=== PATIENT | male | born 1955 | race Caucasian/White ===

== ENCOUNTER 2017-03-12 18:42 | Emergency (ER) | payer OTHER ==
[~2017-03-12] VITALS: Ht 170.2 cm; Wt 108.9 kg
[~2017-03-12 18:42] MED LIST: ALDACTONE50 MG PO; BUSPIRONE15 M1 PO; CLONIDINE HYDR0.3 M1 PO; COZAAR100 MG PO; HYDROCHLOROTHIA25 MG PO; LACTULOSE10 GM/152 PO; LASIX20 MG PO; RESTORIL30 MG PO; VENLAFAXINE PO; VENLAFAXINE150 M1 PO
[2017-03-12 21:18] VITALS: BP 102/70
== END 2017-03-12 21:19 | disposition home or self-care (01) ==
LOC: ED 18:42
DX: G89.29 Other chronic pain (principal); M54.5 Low back pain
CPT/HCPCS: J1885

== ENCOUNTER 2017-07-24 16:38 | Emergency (ER) | payer OTHER ==
[~2017-07-24] VITALS: Ht 170.2 cm; Wt 81.6 kg
[~2017-07-24 16:38] MED LIST changes: +BACLOFEN20 MG PO; +BUSPIRONE HCL10 MG PO; +CYMBALTA30 M1 PO; +DILAUDID2 MG PO; +LORAZEPAM1 MG PO; +MELOXICAM15 M1 PO; +TRAZODONE150 M1 PO
[2017-07-24 16:51] VITALS: BP 120/57; Ht 170.2 cm; Wt 81.6 kg
== END 2017-07-24 16:51 | disposition home or self-care (01) ==
LOC: ED 16:38
DX: G89.29 Other chronic pain (principal); M54.9 Dorsalgia, unspecified; I10 Essential (primary) hypertension; M79.7 Fibromyalgia; F31.9 Bipolar disorder, unspecified
CPT/HCPCS: J1885

== ENCOUNTER 2017-08-04 19:18 | Emergency (ER) | payer OTHER ==
[~2017-08-04] VITALS: Ht 170.2 cm; Wt 77.1 kg
[2017-08-04 20:23] VITALS: Ht 170.2 cm; Wt 77.1 kg
[2017-08-04 22:04] LABS: BASOPHIL % 0.7 % (0-2); PLATELET COUNT 92 x10^3mcL (130-400); RED CELL DISTRIBUTION WIDTH 13.9 % (11.5-14.5)
[2017-08-04 22:54] VITALS: BP 118/74
[2017-08-04 23:04] LABS: CALCIUM 8.4 mg/dL (8.5-10.1); CARBON DIOXIDE 18.9 mmol/L (21-32); CHLORIDE SERUM 105 mmol/L (98-107); CREATININE SERUM 1.1 mg/dL (0.7-1.3); GFR1 > 60 mL/min; GLUCOSE SERUM 97 mg/dL (74-106); POTASSIUM SERUM 4.1 mmol/L (3.5-5.1); SODIUM SERUM 137 mmol/L (136-145)
[2017-08-04 23:09] LABS: ALKALINE PHOSPHATASE 65 U/L (46-116); ALT/SGPT 48 U/L (16-63); AST/SGOT 45 U/L (15-37); BILIRUBIN TOTAL 0.8 mg/dL (0.20-1.00)
[2017-08-04 23:12] LABS: ALBUMIN 3.2 g/dL (3.4-5.0)
== END 2017-08-04 22:54 | disposition left against medical advice (07) ==
LOC: ED 19:18
PROVIDERS: Specialist
DX: G89.29 Other chronic pain (principal); I10 Essential (primary) hypertension; M79.7 Fibromyalgia; F31.9 Bipolar disorder, unspecified
CPT/HCPCS: 36415; G0480; J3490

== ENCOUNTER 2017-09-14 17:25 | Emergency (ER) | payer OTHER ==
[~2017-09-14] VITALS: Ht 170.2 cm; Wt 81.6 kg
[2017-09-14 17:29] VITALS: Ht 170.2 cm; Wt 81.6 kg
[2017-09-14 18:16] VITALS: BP 134/92
== END 2017-09-14 18:16 | disposition home or self-care (01) ==
LOC: ED 17:25
DX: G89.29 Other chronic pain (principal); M54.9 Dorsalgia, unspecified
CPT/HCPCS: J1885

== ENCOUNTER 2017-09-16 09:21 | Emergency (ER) | payer OTHER ==
[~2017-09-16] VITALS: Ht 170.2 cm; Wt 82.5 kg
[2017-09-16 09:25] VITALS: Ht 170.2 cm; Wt 82.5 kg
[2017-09-16 11:30] VITALS: BP 158/109
== END 2017-09-16 11:30 | disposition home or self-care (01) ==
LOC: ED 09:21
DX: G89.29 Other chronic pain (principal); M54.5 Low back pain; I10 Essential (primary) hypertension; K75.89 Other specified inflammatory liver diseases; M85.80 Other specified disorders of bone density and structure, unspecified site; M79.7 Fibromyalgia; F31.9 Bipolar disorder, unspecified
CPT/HCPCS: J3010; Q0162

== ENCOUNTER 2017-10-03 20:08 | Emergency (ER) | payer OTHER ==
[~2017-10-03] VITALS: Ht 170.2 cm; Wt 81.6 kg
[2017-10-03 21:00] VITALS: Ht 170.2 cm; Wt 81.6 kg
[2017-10-03 22:28] VITALS: BP 132/71
== END 2017-10-03 22:28 | disposition home or self-care (01) ==
LOC: ED 20:08
DX: M54.5 Low back pain (principal); I10 Essential (primary) hypertension
CPT/HCPCS: J1885

== ENCOUNTER 2017-10-05 06:05 | Emergency (ER) | payer OTHER ==
[~2017-10-05] VITALS: Ht 170.2 cm; Wt 82.5 kg
[2017-10-05 06:24] VITALS: Ht 170.2 cm; Wt 82.5 kg
[2017-10-05 08:26] VITALS: BP 138/92
== END 2017-10-05 08:47 | disposition home or self-care (01) ==
LOC: ED 06:05
PROC: 0T9B70Z Drainage of Bladder with Drainage Device, Via Natural or Artificial Opening (ICD-10-PCS; principal; 2017-10-05)
DX: R33.9 Retention of urine, unspecified (principal); I10 Essential (primary) hypertension; F31.9 Bipolar disorder, unspecified; B19.20 Unspecified viral hepatitis C without hepatic coma; M79.7 Fibromyalgia; K42.9 Umbilical hernia without obstruction or gangrene

== ENCOUNTER 2017-10-08 20:50 | Emergency (ER) | payer OTHER ==
[~2017-10-08] VITALS: Ht 170.2 cm; Wt 85.0 kg
[2017-10-08 21:11] VITALS: Ht 170.2 cm; Wt 85.0 kg
[2017-10-08 22:14] VITALS: BP 134/86
== END 2017-10-08 22:14 | disposition home or self-care (01) ==
LOC: ED 20:50
DX: Z46.6 Encounter for fitting and adjustment of urinary device (principal); I10 Essential (primary) hypertension

== ENCOUNTER 2017-10-19 00:49 | Emergency (ER) | payer OTHER ==
[~2017-10-19] VITALS: Ht 170.2 cm; Wt 83.0 kg
[2017-10-19 01:02] VITALS: Ht 170.2 cm; Wt 83.0 kg
[2017-10-19 02:56] LABS: UA SPECIFIC GRAVITY <=1.005 (1.005-1.035); microscopic required? YES; urine erythrocyte 2+ (NEGATIVE)
[2017-10-19 06:45] VITALS: BP 159/99
== END 2017-10-19 06:45 | disposition home or self-care (01) ==
LOC: ED 00:49
DX: R33.9 Retention of urine, unspecified (principal); R10.30 Lower abdominal pain, unspecified; G89.29 Other chronic pain; M54.9 Dorsalgia, unspecified; I10 Essential (primary) hypertension

== ENCOUNTER 2017-10-23 03:45 | Emergency (ER) | payer OTHER ==
[~2017-10-23] VITALS: Ht 170.2 cm; Wt 83.0 kg
[2017-10-23 03:48] VITALS: Ht 170.2 cm; Wt 83.0 kg
[2017-10-23 07:12] VITALS: BP 147/89
== END 2017-10-23 07:12 | disposition home or self-care (01) ==
LOC: ED 03:45
DX: R31.9 Hematuria, unspecified (principal); I10 Essential (primary) hypertension; T83.028A Displacement of other urinary catheter, initial encounter; Z87.448 Personal history of other diseases of urinary system; Y92.89 Other specified places as the place of occurrence of the external cause
CPT/HCPCS: J2270; J7030

== ENCOUNTER 2017-10-25 01:26 | Emergency (ER) | payer OTHER ==
[~2017-10-25] VITALS: Ht 170.2 cm; Wt 83.0 kg
[2017-10-25 01:32] VITALS: Ht 170.2 cm; Wt 83.0 kg
[2017-10-25 06:58] VITALS: BP 153/121
== END 2017-10-25 07:54 | disposition home or self-care (01) ==
LOC: ED 01:26
DX: M54.5 Low back pain (principal); R20.2 Paresthesia of skin; I10 Essential (primary) hypertension
CPT/HCPCS: J1885; J3010; Q0162

== ENCOUNTER 2017-10-26 06:51 | Inpatient (IN) | payer OTHER ==
[~2017-10-26] VITALS: Ht 170.2 cm; Wt 84.0 kg
[2017-10-26 06:54] VITALS: Ht 170.2 cm; Wt 84.0 kg
[2017-10-26 08:15] LABS: BASOPHIL % 0.5 % (0-2); RED CELL DISTRIBUTION WIDTH 14.4 % (11.5-14.5)
[2017-10-26 08:17] LABS: PLATELET COUNT 105 x10^3mcL (130-400)
[2017-10-26 08:33] LABS: CALCIUM 9.1 mg/dL (8.5-10.1); CARBON DIOXIDE 22.8 mmol/L (21-32); CHLORIDE SERUM 97 mmol/L (98-107); CREATININE SERUM 1.1 mg/dL (0.7-1.3); GFR1 > 60 mL/min; GLUCOSE SERUM 98 mg/dL (74-106); POTASSIUM SERUM 3.5 mmol/L (3.5-5.1); SODIUM SERUM 131 mmol/L (136-145)
[2017-10-26 08:35] LABS: UA SPECIFIC GRAVITY 1.015 (1.005-1.035); microscopic required? YES; urine erythrocyte 3+ (NEGATIVE)
[2017-10-26 08:37] LABS: ALBUMIN 3.6 g/dL (3.4-5.0); ALKALINE PHOSPHATASE 54 U/L (46-116); ALT/SGPT 35 U/L (16-63); AMYLASE 73 U/L (25-115); AST/SGOT 52 U/L (15-37); BILIRUBIN TOTAL 1.63 mg/dL (0.20-1.00); CHOLESTEROL 145 mg/dL (<200); HDL CHOLESTEROL 82 mg/dL (40-60); LIPASE 191 IU/L (73-393); MAGNESIUM 1.3 mg/dL (1.8-2.4); T4(THYROXINE) 5.8 ug/dL (4.7-13.3); TOTAL PROTEIN, SERUM 7.4 g/dL (6.4-8.2)
[2017-10-26 08:50] LABS: AMPHETAMINE QUAL UR NONE DETECTED (See below)
[2017-10-26 11:00] VITALS: BP 156/103
[2017-10-26 11:08] LABS: CHOLESTEROL/HDL RATIO 1.8
[2017-10-26 11:14] LABS: T3 TOTAL 1.12 ng/mL
[2017-10-26 11:16] LABS: FREE T4 1.11 ng/dL (0.76-1.46); T4(THYROXINE) 5.9 ug/dL (4.7-13.3)
[2017-10-26 17:17] VITALS: BP 158/102
[2017-10-26 20:58] VITALS: BP 146/97
[2017-10-27 05:41] VITALS: BP 144/95
[2017-10-27 07:18] LABS: BASOPHIL % 1.9 % (0-2); RED CELL DISTRIBUTION WIDTH 14.4 % (11.5-14.5)
[2017-10-27 07:25] LABS: PLATELET COUNT 87 x10^3mcL (130-400)
[2017-10-27 07:37] LABS: ALKALINE PHOSPHATASE 47 U/L (46-116); ALT/SGPT 20 U/L (16-63); AMYLASE 57 U/L (25-115); AST/SGOT 41 U/L (15-37); BILIRUBIN TOTAL 1.22 mg/dL (0.20-1.00); CALCIUM 8.5 mg/dL (8.5-10.1); CARBON DIOXIDE 23.5 mmol/L (21-32); CHLORIDE SERUM 101 mmol/L (98-107); GFR1 > 60 mL/min; GLUCOSE SERUM 99 mg/dL (74-106); MAGNESIUM 1.3 mg/dL (1.8-2.4); PHOSPHOROUS 3.3 mg/dL (2.5-4.9); POTASSIUM SERUM 3.5 mmol/L (3.5-5.1); SODIUM SERUM 134 mmol/L (136-145); TOTAL PROTEIN, SERUM 6.4 g/dL (6.4-8.2)
[2017-10-27 09:58] VITALS: BP 146/101
[2017-10-27 13:38] VITALS: BP 148/107
[2017-10-27 17:00] VITALS: BP 157/105
[2017-10-27 21:13] VITALS: BP 163/98
[2017-10-27 22:06] VITALS: BP 143/99
[2017-10-28 05:54] VITALS: BP 135/103
[2017-10-28 07:03] LABS: BASOPHIL % 0.8 % (0-2)
[2017-10-28 07:04] LABS: PLATELET COUNT 110 x10^3mcL (130-400); RED CELL DISTRIBUTION WIDTH 14.8 % (11.5-14.5)
[2017-10-28 07:20] LABS: ALKALINE PHOSPHATASE 48 U/L (46-116); ALT/SGPT 30 U/L (16-63); AST/SGOT 36 U/L (15-37); BILIRUBIN TOTAL 1.06 mg/dL (0.20-1.00); CALCIUM 8.8 mg/dL (8.5-10.1); CARBON DIOXIDE 23.7 mmol/L (21-32); CHLORIDE SERUM 101 mmol/L (98-107); CREATININE SERUM 1.1 mg/dL (0.7-1.3); GFR1 > 60 mL/min; GLUCOSE SERUM 86 mg/dL (74-106); MAGNESIUM 1.5 mg/dL (1.8-2.4); POTASSIUM SERUM 3.8 mmol/L (3.5-5.1); SODIUM SERUM 135 mmol/L (136-145); TOTAL PROTEIN, SERUM 6.7 g/dL (6.4-8.2)
[2017-10-28 07:21] LABS: ALBUMIN 3.1 g/dL (3.4-5.0)
[2017-10-28 08:08] VITALS: BP 142/97
[2017-10-28] MEDS ORDERED: FLOMAX0.4 MG PO (10:54)
[2017-10-28] MEDS ORDERED: NORCO1 TA1 PO (10:55)
[2017-10-28] MEDS ORDERED: LAC PO (10:55)
[2017-10-28] MEDS ORDERED: LEVAQUIN500 M1 PO (10:56)
[2017-10-28 11:52] VITALS: BP 142/97
[2017-10-28 12:26] VITALS: BP 136/75
[2017-10-28 12:28] VITALS: BP 146/95
== END 2017-10-28 14:49 | disposition home or self-care (01) | DRG 347 ==
LOC: ED 06:51 → DU 09:19
PROVIDERS: Emergency Medicine; Family Medicine; Internal Medicine
DX: S32.018A Other fracture of first lumbar vertebra, initial encounter for closed fracture (principal); N17.0 Acute kidney failure with tubular necrosis; G93.41 Metabolic encephalopathy; D69.6 Thrombocytopenia, unspecified; E87.1 Hypo-osmolality and hyponatremia; E83.42 Hypomagnesemia; N39.0 Urinary tract infection, site not specified; F25.0 Schizoaffective disorder, bipolar type; B18.2 Chronic viral hepatitis C; M79.7 Fibromyalgia; R80.9 Proteinuria, unspecified; I10 Essential (primary) hypertension; Z68.28 Body mass index [BMI] 28.0-28.9, adult; W17.89XA Other fall from one level to another, initial encounter; Y93.89 Activity, other specified; Y92.89 Other specified places as the place of occurrence of the external cause
CPT/HCPCS: 36600; 83880; 84439; 97535-GP; G0480; J1956; J2270; J7030; J7040; Q0092

== ENCOUNTER 2017-10-29 18:47 | Emergency (ER) | payer OTHER ==
[~2017-10-29] VITALS: Ht 170.2 cm; Wt 83.0 kg
[~2017-10-29 18:47] MED LIST changes: +FLOMAX0.4 MG PO; +LAC PO; +LEVAQUIN500 M1 PO; +NORCO1 TA1 PO
[2017-10-29 18:56] VITALS: Ht 170.2 cm; Wt 83.0 kg
[2017-10-29 20:27] VITALS: BP 135/87
== END 2017-10-29 20:28 | disposition home or self-care (01) ==
LOC: ED 18:47
DX: G89.29 Other chronic pain (principal); M54.5 Low back pain; I10 Essential (primary) hypertension; Z86.69 Personal history of other diseases of the nervous system and sense organs
CPT/HCPCS: J1885

== ENCOUNTER 2017-11-08 16:26 | Emergency (ER) | payer OTHER ==
[~2017-11-08] VITALS: Ht 170.2 cm; Wt 83.0 kg
[2017-11-08 16:32] VITALS: Ht 170.2 cm; Wt 83.0 kg
[2017-11-08 19:17] LABS: microscopic required? NO
[2017-11-08 19:30] LABS: BASOPHIL % 0.7 % (0-2)
[2017-11-08 19:32] LABS: UA SPECIFIC GRAVITY <=1.005 (1.005-1.035); urine erythrocyte NEGATIVE (NEGATIVE)
[2017-11-08 19:34] LABS: PLATELET COUNT 121 x10^3mcL (130-400); RED CELL DISTRIBUTION WIDTH 15.3 % (11.5-14.5)
[2017-11-08 19:38] LABS: CALCIUM 7.5 mg/dL (8.5-10.1); CARBON DIOXIDE 24.2 mmol/L (21-32); CHLORIDE SERUM 98 mmol/L (98-107); CREATININE SERUM 1.1 mg/dL (0.7-1.3); GFR1 > 60 mL/min; GLUCOSE SERUM 121 mg/dL (74-106); POTASSIUM SERUM 3.6 mmol/L (3.5-5.1); SODIUM SERUM 129 mmol/L (136-145)
[2017-11-08 19:42] LABS: ALKALINE PHOSPHATASE 67 U/L (46-116); ALT/SGPT 37 U/L (16-63); AST/SGOT 39 U/L (15-37); BILIRUBIN TOTAL 0.6 mg/dL (0.20-1.00)
[2017-11-08 19:43] LABS: ALBUMIN 3.1 g/dL (3.4-5.0)
[2017-11-08 19:45] LABS: AMPHETAMINE QUAL UR NONE DETECTED (See below)
[2017-11-08 20:20] VITALS: BP 134/93
== END 2017-11-08 20:20 | disposition home or self-care (01) ==
LOC: ED 16:26
PROVIDERS: Emergency Medicine
DX: M54.42 Lumbago with sciatica, left side (principal); F10.10 Alcohol abuse, uncomplicated; I10 Essential (primary) hypertension; G89.29 Other chronic pain; F31.9 Bipolar disorder, unspecified
CPT/HCPCS: 36415; G0480; J1885; J7512

== ENCOUNTER 2017-11-10 22:09 | Emergency (ER) | payer OTHER ==
[~2017-11-10] VITALS: Ht 170.2 cm; Wt 82.6 kg
[2017-11-10 22:14] VITALS: Ht 170.2 cm; Wt 82.6 kg
[2017-11-10 23:40] VITALS: BP 126/85
== END 2017-11-10 23:40 | disposition home or self-care (01) ==
LOC: ED 22:09
DX: M54.32 Sciatica, left side (principal); I10 Essential (primary) hypertension; G89.29 Other chronic pain; F31.9 Bipolar disorder, unspecified
CPT/HCPCS: J1885

== ENCOUNTER 2017-11-28 11:06 | Inpatient (IN) | payer OTHER ==
[~2017-11-28] VITALS: Ht 167.6 cm; Wt 72.2 kg
[2017-11-28 11:12] VITALS: Ht 167.6 cm; Wt 72.2 kg
[2017-11-28 12:02] LABS: BASOPHIL % 0.5 % (0-2); PLATELET COUNT 206 x10^3mcL (130-400); RED CELL DISTRIBUTION WIDTH 14.5 % (11.5-14.5)
[2017-11-28 12:09] LABS: CARBON DIOXIDE 21 mmol/L (21-32); CHLORIDE SERUM 92 mmol/L (98-107); POTASSIUM SERUM 3.9 mmol/L (3.5-5.1); SODIUM SERUM 126 mmol/L (136-145)
[2017-11-28 12:10] LABS: CALCIUM 9.5 mg/dL (8.5-10.1); CREATININE SERUM 1.1 mg/dL (0.7-1.3); GFR1 > 60 mL/min; GLUCOSE SERUM 101 mg/dL (74-106)
[2017-11-28 12:26] LABS: ALKALINE PHOSPHATASE 64 U/L (46-116); ALT/SGPT 46 U/L (16-63); AST/SGOT 64 U/L (15-37); BILIRUBIN TOTAL 1.8 mg/dL (0.20-1.00)
[2017-11-28 12:37] LABS: TOTAL PROTEIN, SERUM 8.3 g/dL (6.4-8.2)
[2017-11-28] MEDS ORDERED: HYDRALAZINE HCL25 MG (13:19)
[2017-11-28] MEDS ORDERED: FINASTERIDE5 M1 PO (13:20)
[2017-11-28 13:57] LABS: MAGNESIUM 1.8 mg/dL (1.8-2.4); PHOSPHOROUS 4.2 mg/dL (2.5-4.9)
[2017-11-28 14:06] LABS: FREE T4 1.07 ng/dL (0.76-1.46); FREE THYROXINE INDEX 2.6 ug/dL (1.4-4.5); T4(THYROXINE) 7.9 ug/dL (4.7-13.3)
[2017-11-28 14:08] LABS: T3 TOTAL 1.2 ng/mL
[2017-11-28 14:23] VITALS: BP 148/108
[2017-11-28 17:12] VITALS: BP 149/87
[2017-11-28 18:12] VITALS: BP 126/87
[2017-11-28 20:56] VITALS: BP 111/79
[2017-11-28 22:57] LABS: microscopic required? NO
[2017-11-28 23:13] LABS: urine erythrocyte NEGATIVE (NEGATIVE)
[2017-11-28 23:22] LABS: AMPHETAMINE QUAL UR NONE DETECTED (See below)
[2017-11-29] VITALS (8 sets, daily range): BP systolic 82–153; BP diastolic 43–99
[2017-11-29 07:24] LABS: CALCIUM 8.7 mg/dL (8.5-10.1); CARBON DIOXIDE 18.7 mmol/L (21-32); CHLORIDE SERUM 94 mmol/L (98-107); GFR1 > 60 mL/min; GLUCOSE SERUM 100 mg/dL (74-106); MAGNESIUM 1.7 mg/dL (1.8-2.4); PHOSPHOROUS 3.8 mg/dL (2.5-4.9); POTASSIUM SERUM 3.3 mmol/L (3.5-5.1); SODIUM SERUM 126 mmol/L (136-145)
[2017-11-29 08:38] LABS: BASOPHIL % 0.7 % (0-2); PLATELET COUNT 150 x10^3mcL (130-400)
[2017-11-30 05:32] VITALS: BP 136/91
[2017-11-30 06:12] LABS: BASOPHIL % 0.7 % (0-2)
[2017-11-30 06:25] LABS: PLATELET COUNT 114 x10^3mcL (130-400); RED CELL DISTRIBUTION WIDTH 15.8 % (11.5-14.5)
[2017-11-30 06:32] LABS: CALCIUM 8.4 mg/dL (8.5-10.1); CARBON DIOXIDE 19.5 mmol/L (21-32); CHLORIDE SERUM 103 mmol/L (98-107); CREATININE SERUM 1.2 mg/dL (0.7-1.3); GFR1 > 60 mL/min; GLUCOSE SERUM 84 mg/dL (74-106); MAGNESIUM 1.9 mg/dL (1.8-2.4); PHOSPHOROUS 2.9 mg/dL (2.5-4.9); POTASSIUM SERUM 3.9 mmol/L (3.5-5.1); SODIUM SERUM 134 mmol/L (136-145)
[2017-11-30 08:58] VITALS: BP 103/64
[2017-11-30] MEDS ORDERED: LAC15L PO (12:12)
[2017-11-30] MEDS ORDERED: THI100 PO (12:13)
[2017-11-30] MEDS ORDERED: FOL1 PO (12:13)
[2017-11-30 12:20] VITALS: BP 103/64
[2017-11-30 13:09] VITALS: BP 131/97
== END 2017-11-30 14:15 | disposition home or self-care (01) | DRG 279 ==
LOC: ED 11:06 → MU 13:11 → EDBEDREQSVC 13:11 → DU 13:11 → MU 14:38 → DU 15:03
PROVIDERS: Emergency Medicine; Internal Medicine
DX: K72.90 Hepatic failure, unspecified without coma (principal); G93.41 Metabolic encephalopathy; F10.239 Alcohol dependence with withdrawal, unspecified; B19.20 Unspecified viral hepatitis C without hepatic coma; E87.1 Hypo-osmolality and hyponatremia; E80.6 Other disorders of bilirubin metabolism; I10 Essential (primary) hypertension; F31.9 Bipolar disorder, unspecified; M79.7 Fibromyalgia; Y90.9 Presence of alcohol in blood, level not specified
CPT/HCPCS: 83880; 84439; G0480; J0780; J1885; J2060; J3010; J3475; J7030; Q0092

== ENCOUNTER 2017-12-01 22:59 | Emergency (ER) | payer OTHER ==
[~2017-12-01] VITALS: Ht 170.2 cm; Wt 83.0 kg
[~2017-12-01 22:59] MED LIST changes: +FINASTERIDE5 M1 PO; +FOL1 PO; +HYDRALAZINE HCL25 MG; +LAC15L PO; +THI100 PO
[2017-12-01 23:04] VITALS: Ht 170.2 cm; Wt 83.0 kg
[2017-12-01 23:45] LABS: BASOPHIL % 0.7 % (0-2)
[2017-12-01 23:51] LABS: PLATELET COUNT 122 x10^3mcL (130-400)
[2017-12-02 00:05] LABS: ALKALINE PHOSPHATASE 52 U/L (46-116); ALT/SGPT 32 U/L (16-63); AST/SGOT 33 U/L (15-37); BILIRUBIN TOTAL 0.6 mg/dL (0.20-1.00); CALCIUM 7.9 mg/dL (8.5-10.1); CARBON DIOXIDE 19.8 mmol/L (21-32); CHLORIDE SERUM 101 mmol/L (98-107); CREATININE SERUM 1.1 mg/dL (0.7-1.3); GFR1 > 60 mL/min; GLUCOSE SERUM 122 mg/dL (74-106); MAGNESIUM 1.8 mg/dL (1.8-2.4); POTASSIUM SERUM 3.4 mmol/L (3.5-5.1); SODIUM SERUM 132 mmol/L (136-145); TOTAL PROTEIN, SERUM 6.9 g/dL (6.4-8.2)
[2017-12-02 00:11] LABS: ALBUMIN 3.3 g/dL (3.4-5.0)
[2017-12-02 04:12] VITALS: BP 133/75
== END 2017-12-02 04:12 | disposition home or self-care (01) ==
LOC: ED 22:59
PROVIDERS: Emergency Medicine
DX: G89.29 Other chronic pain (principal); M54.9 Dorsalgia, unspecified; I10 Essential (primary) hypertension; F31.9 Bipolar disorder, unspecified
CPT/HCPCS: G0480; J1885; J3411; J3475; J3490; J7030; J7040

== ENCOUNTER 2017-12-03 17:21 | Inpatient (IN) | payer OTHER ==
[~2017-12-03] VITALS: Ht 167.6 cm; Wt 83.1 kg
[2017-12-03 18:55] LABS: BASOPHIL % 0.8 % (0-2); PLATELET COUNT 171 x10^3mcL (130-400)
[2017-12-03 18:57] LABS: RED CELL DISTRIBUTION WIDTH 15.4 % (11.5-14.5)
[2017-12-03 19:17] LABS: CHLORIDE SERUM 108 mmol/L (98-107); CREATININE SERUM 1.3 mg/dL (0.7-1.3); GFR1 60 mL/min; GLUCOSE SERUM 106 mg/dL (74-106); POTASSIUM SERUM 3.5 mmol/L (3.5-5.1); SODIUM SERUM 144 mmol/L (136-145)
[2017-12-03 19:30] LABS: ALBUMIN 3.6 g/dL (3.4-5.0); ALKALINE PHOSPHATASE 54 U/L (46-116); ALT/SGPT 33 U/L (16-63); AST/SGOT 34 U/L (15-37); BILIRUBIN TOTAL 0.6 mg/dL (0.20-1.00); FREE T4 0.91 ng/dL (0.76-1.46); TOTAL PROTEIN, SERUM 7.6 g/dL (6.4-8.2)
[2017-12-03 22:11] VITALS: BP 144/85
[2017-12-03 22:53] LABS: MAGNESIUM 1.8 mg/dL (1.8-2.4); PHOSPHOROUS 4.2 mg/dL (2.5-4.9)
[2017-12-04] VITALS (11 sets, daily range): BP systolic 140–175; BP diastolic 92–111; Ht 167.6 cm; Wt 83.1 kg
[2017-12-04 02:15] LABS: microscopic required? NO
[2017-12-04 02:29] LABS: UA SPECIFIC GRAVITY 1.025 (1.005-1.035); urine erythrocyte NEGATIVE (NEGATIVE)
[2017-12-04 02:35] LABS: AMPHETAMINE QUAL UR NONE DETECTED (See below)
[2017-12-04 06:34] LABS: BASOPHIL % 0.7 % (0-2); PLATELET COUNT 142 x10^3mcL (130-400)
[2017-12-04 06:39] LABS: RED CELL DISTRIBUTION WIDTH 14.9 % (11.5-14.5)
[2017-12-04 07:12] LABS: CARBON DIOXIDE 22.3 mmol/L (21-32); CHLORIDE SERUM 108 mmol/L (98-107); CREATININE SERUM 1.1 mg/dL (0.7-1.3); GFR1 > 60 mL/min; GLUCOSE SERUM 126 mg/dL (74-106); POTASSIUM SERUM 3.6 mmol/L (3.5-5.1); SODIUM SERUM 142 mmol/L (136-145)
[2017-12-05 05:16] VITALS: BP 144/91
[2017-12-05 06:23] LABS: BASOPHIL % 0.5 % (0-2); PLATELET COUNT 107 x10^3mcL (130-400); RED CELL DISTRIBUTION WIDTH 14.5 % (11.5-14.5)
[2017-12-05 06:27] LABS: CALCIUM 8.3 mg/dL (8.5-10.1); CARBON DIOXIDE 24.9 mmol/L (21-32); CHLORIDE SERUM 105 mmol/L (98-107); CREATININE SERUM 0.9 mg/dL (0.7-1.3); GFR1 > 60 mL/min; GLUCOSE SERUM 87 mg/dL (74-106); POTASSIUM SERUM 3.5 mmol/L (3.5-5.1); SODIUM SERUM 138 mmol/L (136-145)
[2017-12-05 08:54] VITALS: BP 120/90
[2017-12-05 12:30] VITALS: BP 125/82
[2017-12-05 13:20] VITALS: BP 120/90
== END 2017-12-05 15:38 | disposition home or self-care (01) | DRG 52 ==
LOC: ED 17:21 → MU 20:02 → DU 20:02 → MU 21:46 → DU 12-04 08:09
PROVIDERS: Emergency Medicine; Family Medicine
DX: G92 Toxic encephalopathy (principal); F33.2 Major depressive disorder, recurrent severe without psychotic features; R45.851 Suicidal ideations; F10.129 Alcohol abuse with intoxication, unspecified; I16.0 Hypertensive urgency; B18.2 Chronic viral hepatitis C; M79.7 Fibromyalgia; G89.29 Other chronic pain; M54.5 Low back pain; M85.80 Other specified disorders of bone density and structure, unspecified site
CPT/HCPCS: 84439; G0480; J2270; J3411; J3475; J3490; J7030

== ENCOUNTER 2017-12-08 07:59 | Inpatient (IN) | payer OTHER ==
[~2017-12-08] VITALS: Ht 170.2 cm; Wt 90.3 kg
[2017-12-08 08:07] VITALS: Ht 170.2 cm; Wt 90.3 kg
[2017-12-08 08:32] LABS: BASOPHIL % 0.6 % (0-2)
[2017-12-08 08:33] LABS: PLATELET COUNT 117 x10^3mcL (130-400); RED CELL DISTRIBUTION WIDTH 14.6 % (11.5-14.5)
[2017-12-08 08:46] LABS: ALKALINE PHOSPHATASE 57 U/L (46-116); ALT/SGPT 15 U/L (16-63); AST/SGOT 33 U/L (15-37); CALCIUM 8.9 mg/dL (8.5-10.1); CHLORIDE SERUM 109 mmol/L (98-107); CHOLESTEROL 151 mg/dL (<200); CREATININE SERUM 1.7 mg/dL (0.7-1.3); GFR1 44 mL/min; GLUCOSE SERUM 137 mg/dL (74-106); POTASSIUM SERUM 3.7 mmol/L (3.5-5.1); SODIUM SERUM 146 mmol/L (136-145); TOTAL PROTEIN, SERUM 7.4 g/dL (6.4-8.2)
[2017-12-08 08:47] LABS: ALBUMIN 3.3 g/dL (3.4-5.0)
[2017-12-08 09:52] LABS: AMPHETAMINE QUAL UR NONE DETECTED (See below)
[2017-12-08 12:03] VITALS: BP 135/80
[2017-12-08 16:14] LABS: microscopic required? NO
[2017-12-08 16:17] LABS: UA SPECIFIC GRAVITY <=1.005 (1.005-1.035); urine erythrocyte NEGATIVE (NEGATIVE)
[2017-12-08 17:15] VITALS: BP 172/112
[2017-12-08 18:58] VITALS: BP 167/104
[2017-12-08 20:29] VITALS: BP 151/104
[2017-12-09 05:50] VITALS: BP 189/119
[2017-12-09 06:38] VITALS: BP 175/106
[2017-12-09 07:09] LABS: ALKALINE PHOSPHATASE 49 U/L (46-116); ALT/SGPT 27 U/L (16-63); AST/SGOT 28 U/L (15-37); BILIRUBIN DIRECT 0.35 mg/dL (0.0-0.2); BILIRUBIN TOTAL 0.73 mg/dL (0.20-1.00); CALCIUM 8.6 mg/dL (8.5-10.1); CARBON DIOXIDE 25.3 mmol/L (21-32); CHLORIDE SERUM 110 mmol/L (98-107); CREATININE SERUM 1.1 mg/dL (0.7-1.3); GFR1 > 60 mL/min; GLUCOSE SERUM 108 mg/dL (74-106); POTASSIUM SERUM 4.2 mmol/L (3.5-5.1); SODIUM SERUM 145 mmol/L (136-145); TOTAL PROTEIN, SERUM 6.7 g/dL (6.4-8.2)
[2017-12-09 07:11] LABS: BASOPHIL % 0.5 % (0-2); RED CELL DISTRIBUTION WIDTH 14.3 % (11.5-14.5)
[2017-12-09 07:12] LABS: PLATELET COUNT 78 x10^3mcL (130-400)
[2017-12-09 09:21] VITALS: BP 160/100
[2017-12-09 17:14] VITALS: BP 144/86
[2017-12-09 17:36] VITALS: BP 144/86
== END 2017-12-09 19:23 | disposition home or self-care (01) | DRG 422 ==
LOC: ED 07:59 → MU 10:58
PROVIDERS: Internal Medicine Pulmonary Disease; Specialist
DX: E86.0 Dehydration (principal); N17.0 Acute kidney failure with tubular necrosis; F10.229 Alcohol dependence with intoxication, unspecified; K74.69 Other cirrhosis of liver; B18.2 Chronic viral hepatitis C; S32.049D Unspecified fracture of fourth lumbar vertebra, subsequent encounter for fracture with routine healing; S32.059D Unspecified fracture of fifth lumbar vertebra, subsequent encounter for fracture with routine healing; G89.29 Other chronic pain; M79.7 Fibromyalgia; I10 Essential (primary) hypertension; F32.9 Major depressive disorder, single episode, unspecified; Z79.891 Long term (current) use of opiate analgesic; Y90.8 Blood alcohol level of 240 mg/100 ml or more; X58.XXXD Exposure to other specified factors, subsequent encounter
CPT/HCPCS: 97535-GP; G0480; J1885; J7030

== ENCOUNTER 2017-12-15 00:11 | Emergency (ER) | payer OTHER ==
[~2017-12-15] VITALS: Ht 175.3 cm; Wt 84.8 kg
[2017-12-15 00:23] VITALS: Ht 175.3 cm; Wt 84.8 kg
[2017-12-15 01:09] VITALS: BP 105/67
== END 2017-12-15 01:09 | disposition home or self-care (01) ==
LOC: ED 00:11
DX: G89.29 Other chronic pain (principal); M54.5 Low back pain; I10 Essential (primary) hypertension
CPT/HCPCS: J1885

== ENCOUNTER 2017-12-22 21:07 | Emergency (ER) | payer OTHER ==
[2017-12-22 22:42] VITALS: BP 83/57
== END 2017-12-22 22:42 | disposition home or self-care (01) ==
LOC: ED 21:07
DX: G89.29 Other chronic pain (principal); M54.5 Low back pain; M79.7 Fibromyalgia; F41.9 Anxiety disorder, unspecified; F31.9 Bipolar disorder, unspecified
CPT/HCPCS: J1885

== ENCOUNTER 2018-01-09 09:23 | Emergency (ER) | payer OTHER ==
[~2018-01-09] VITALS: Ht 170.2 cm; Wt 81.6 kg
[2018-01-09 09:30] VITALS: Ht 170.2 cm; Wt 81.6 kg
[2018-01-09 10:51] LABS: CALCIUM 8.3 mg/dL (8.5-10.1); CARBON DIOXIDE 23.7 mmol/L (21-32); CREATININE SERUM 1.3 mg/dL (0.7-1.3); POTASSIUM SERUM 3.9 mmol/L (3.5-5.1)
[2018-01-09 10:52] LABS: BASOPHIL % 0.7 % (0-2); RED CELL DISTRIBUTION WIDTH 13.5 % (11.5-14.5)
[2018-01-09 10:53] LABS: PLATELET COUNT 89 x10^3mcL (130-400)
[2018-01-09 11:03] LABS: BILIRUBIN TOTAL 0.7 mg/dL (0.20-1.00); TOTAL PROTEIN, SERUM 7.3 g/dL (6.4-8.2)
[2018-01-09 11:08] LABS: ALBUMIN 3.3 g/dL (3.4-5.0)
[2018-01-09 12:16] VITALS: BP 130/86
== END 2018-01-09 12:17 | disposition home or self-care (01) ==
LOC: ED 09:23
PROVIDERS: Emergency Medicine
DX: E86.1 Hypovolemia (principal); R53.1 Weakness; I95.9 Hypotension, unspecified; G89.29 Other chronic pain; M79.7 Fibromyalgia; F41.9 Anxiety disorder, unspecified; F31.9 Bipolar disorder, unspecified
CPT/HCPCS: J1885; Q0092

== ENCOUNTER 2018-04-29 18:59 | Emergency (ER) | payer OTHER ==
[~2018-04-29] VITALS: Ht 170.2 cm; Wt 81.6 kg
[2018-04-29 19:29] VITALS: Ht 170.2 cm; Wt 81.6 kg
[2018-04-29 21:50] VITALS: BP 130/78
== END 2018-04-29 21:50 | disposition home or self-care (01) ==
LOC: ED 18:59
DX: S01.81XA Laceration without foreign body of other part of head, initial encounter (principal); F10.129 Alcohol abuse with intoxication, unspecified; I10 Essential (primary) hypertension; G89.29 Other chronic pain; F31.9 Bipolar disorder, unspecified; K70.30 Alcoholic cirrhosis of liver without ascites; W18.30XA Fall on same level, unspecified, initial encounter; Y93.89 Activity, other specified; Y92.89 Other specified places as the place of occurrence of the external cause; Y99.8 Other external cause status
CPT/HCPCS: J2001

== ENCOUNTER 2019-02-14 12:12 | Emergency (ER) | payer OTHER ==
[~2019-02-14] VITALS: Ht 170.2 cm; Wt 86.2 kg
[2019-02-14 12:21] VITALS: Ht 170.2 cm; Wt 86.2 kg
[2019-02-14 13:19] VITALS: BP 97/63
== END 2019-02-14 13:19 | disposition home or self-care (01) ==
LOC: ED 12:12
DX: M54.5 Low back pain (principal); G89.29 Other chronic pain; I10 Essential (primary) hypertension; F31.9 Bipolar disorder, unspecified; K74.60 Unspecified cirrhosis of liver
CPT/HCPCS: J1885

== ENCOUNTER 2019-08-27 09:45 | Emergency (ER) | payer OTHER ==
[~2019-08-27] VITALS: Ht 170.2 cm; Wt 104.3 kg
[2019-08-27 09:50] VITALS: Ht 170.2 cm; Wt 104.3 kg
[2019-08-27 16:18] VITALS: BP 153/92
== END 2019-08-27 16:28 | disposition short-term general hospital (02) ==
LOC: ED 09:45
DX: S82.142A Displaced bicondylar fracture of left tibia, initial encounter for closed fracture (principal); I10 Essential (primary) hypertension; M79.7 Fibromyalgia; X58.XXXA Exposure to other specified factors, initial encounter; Y93.89 Activity, other specified; Y92.89 Other specified places as the place of occurrence of the external cause; Y99.8 Other external cause status
CPT/HCPCS: J1885; J2270; J2405; Q0092